=== PATIENT | female | born 1975 | race Hispanic/Latino ===

== ENCOUNTER 2021-08-18 10:20 | Outpatient (CLI) | payer OTHER ==
--- NOTE | 2021-08-18 12:10 | XRay Report ---
CHEST 2 VIEWS INDICATION / CLINICAL INFORMATION: ENCOUNTER FOR DISABILITY DETERMINATION Z02.71. COMPARISON: None available. FINDINGS: SUPPORT DEVICES: None. HEART / MEDIASTINUM: No significant abnormality. LUNGS / PLEURA: No significant pulmonary or pleural abnormality. No pneumothorax. ADDITIONAL FINDINGS: No significant additional findings. IMPRESSION: 1. No acute findings. Signer Name: Lio Murray MD Signed: 08/18/2021 12:06 PM Workstation Name: [id number]
--- NOTE | 2021-08-18 13:23 | XRay Report ---
Bilateral feet radiograph, 3 views of each foot provided. HISTORY: No injury. Nerve damage COMPARISON: None FINDINGS: Right foot: Postoperative changes of prior first TMT arthrodesis and fixation device of the first int ermetatarsal space. No evidence of hardware complication. Remote fracture deformity of the third meta tarsal shaft. There is no acute fracture or malalignment. Mild scattered interphalangeal joints osteo arthritis. Soft tissues are unremarkable. Left foot: No acute fracture or malalignment. No significant arthritis. Lisfranc interval is preserve d. Soft tissues are unremarkable. Signer Name: Macario Suárez MD Signed: 08/18/2021 1:18 PM Workstation Name: [employer] [id number]
--- NOTE | 2021-08-18 13:24 | XRay Report ---
Left knee, 3 views HISTORY: No injury, nerve damage COMPARISON: None FINDINGS: 2 partially threaded screws and washers are present within the proximal tibia. No evidence of hardwar e complication. No acute fracture or malalignment. 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 No significant joint effusion. Soft tissues are unremarkable. Signer Name: Macario Suárez MD Signed: 08/18/2021 1:19 PM Workstation Name: [id number] [id number]
== END 2021-08-18 10:21 | disposition home or self-care (01) ==
LOC: XRAY 10:20 → EDSTATUS 12:07
PROVIDERS: ATTEND Internal Medicine
DX: M17.12 Unilateral primary osteoarthritis, left knee (principal); M19.072 Primary osteoarthritis, left ankle and foot; M19.071 Primary osteoarthritis, right ankle and foot
CPT/HCPCS: 71046